=== PATIENT | male | born 1990 | race Caucasian/White ===

== ENCOUNTER 2021-07-18 18:32 | Emergency (ER) | payer OTHER ==
[~2021-07-18] VITALS: Ht 180.3 cm; Wt 74.8 kg
--- NOTE | 2021-07-18 19:02 | NUR ---
PT CAME TO ER C/O SYNCOPE AND FALLING AND HITTING HEAD ON SUNDAY WHILE TRYING TO GET UP ON SITTING POSITION. SAME INCIDENT HAPPENED 1 MONTH AGO. AAOX4, BREATHING EVEN AND UNLABORED. SPEAKS CLEARLY. ON MONITOR. WILL CONTINUE TO MONITOR.
--- NOTE | 2021-07-18 20:02 | NUR ---
FOLLOWED UP WITH LAB REGARDING BLOOD DRAW
[2021-07-18 20:27] LABS: BASOPHILS # (AUTO) 0.1 K/uL (0.0-0.2); BASOPHILS % (AUTO) 0.9 % (0.0-2.0); EOSINOPHILS % (AUTO) 2.2 % (0.0-6.0); HEMATOCRIT 40 % (39-51); HEMOGLOBIN 13.2 g/dL (13.5-17.5); LYMPHOCYTES # (AUTO) 1.9 K/uL (0.8-4.8); LYMPHOCYTES % (AUTO) 22.8 % (20.0-44.0); MEAN CORPUSCULAR HGB CONC 33 g/dl (31.0-36.0); MEAN CORPUSCULAR VOLUME 83 fL (80-96); MONOCYTES # (AUTO) 0.5 K/uL (0.1-1.30); MONOCYTES % (AUTO) 6.3 % (2.0-12.0); NEUTROPHILS # (AUTO) 5.7 K/uL (1.8-8.9); NEUTROPHILS % (AUTO) 67.8 % (43.0-81.0); PLATELET COUNT (AUTO) 243 K/uL (150-450); RED BLOOD CELL COUNT(AUTO) 4.79 MIL/uL (4.5-6.0); WHITE BLOOD COUNT (AUTO) 8.4 K/uL (4.3-11.0)
[2021-07-18 20:37] LABS: CALCIUM, SERUM 9.1 mg/dL (8.5-10.1); POTASSIUM 3.7 mmol/L (3.5-5.1)
--- NOTE | 2021-07-18 21:00 | NUR ---
Patient discharged to home in stable condition. Written and verbal after care instructions given. Patient verbalizes understanding of instruction. Pt ambulatory with a steady gait
[2021-07-18 21:04] VITALS: BP 138/85
== END 2021-07-18 21:05 | disposition home or self-care (01) ==
LOC: ER 18:39
DX: R55 Syncope and collapse (principal)
CPT/HCPCS: 36415; 80048-TC; 85025-TC